=== PATIENT | male | born 1970 | race African-American/Black ===

== ENCOUNTER 2019-10-22 07:53 | Emergency (ER) | payer MEDICAID, OTHER ==
[~2019-10-22] VITALS: Ht 172.7 cm; Wt 90.7 kg
[2019-10-22] MEDS ORDERED: SODIUM CHLORIDE 0.9% 1,000 ML IV ONE (09:00)
[2019-10-22] MEDS ORDERED: KETOROLAC TROMETH 30 MG/ML 1ML VIAL IV ONE (09:00)
[2019-10-22 09:32] LABS: Basophils # (auto) 0.1 uL; Basophils % (auto) 2.1 % (0.0-2.0); Eosinophils # (auto) 0.2 uL; Eosinophils % (auto) 7.1 % (0.0-7.0); Hemoglobin 15.7 g/dL (13.5-17.5); Lymphocytes # (auto) 1.1 uL; Lymphocytes % (auto) 33.1 % (10.0-50.0); Mean Corpuscular Hemoglobin 31.8 pg (28.0-32.0); Mean Corpuscular Hgb Conc. 34.9 g/dL (32.0-36.0); Monocytes # (auto) 0.4 uL; Monocytes % (auto) 11.2 % (0.0-12.0); Neutrophils # (auto) 1.6 uL; Neutrophils % (auto) 46.5 % (37.0-80.0); Nucleated Red Blood Cells % 0.1 %; Platelet Count (auto) 116 10^3/uL (140-450); Red Blood Cells 4.94 10^6/uL (4.5-5.90); Red Cell Distribution Width 13.2 % (11.8-14.3); White Blood Cell 3.4 10^3/uL (4.4-10.8)
[2019-10-22 09:50] LABS: Albumin 3.3 g/dL (3.4-5.0); BUN/Creatinine Ratio 9.4; Calcium 8.7 mg/dL (8.5-10.1); Potassium 3.9 mmol/L (3.5-5.1)
[2019-10-22 09:53] LABS: Bilirubin, Total 0.6 mg/dL (0.2-1.0); Total Protein 6.9 g/dL (6.4-8.2)
[2019-10-22 10:00] VITALS: BP 144/80
== END 2019-10-22 11:12 | disposition home or self-care (01) ==
LOC: ER 07:53
DX: S33.5XXA Sprain of ligaments of lumbar spine, initial encounter (principal); M79.10 Myalgia, unspecified site; E46 Unspecified protein-calorie malnutrition; N18.9 Chronic kidney disease, unspecified; Z68.30 Body mass index [BMI] 30.0-30.9, adult; X58.XXXA Exposure to other specified factors, initial encounter; Y93.89 Activity, other specified; Y92.89 Other specified places as the place of occurrence of the external cause; Y99.8 Other external cause status
CPT/HCPCS: 36415; 74176; 80053; 85025; 96374; 99284; J1885; J7030

== ENCOUNTER 2024-10-18 17:32 | Inpatient (IN) | payer MEDICAID ==
[~2024-10-18] VITALS: Ht 175.3 cm; Wt 87.2 kg
[2024-10-18] MEDS: ASPirin 325 MG TAB PO ONE (17:45)
--- NOTE | 2024-10-18 17:48 | ED.PDOC ---
HPI Comments HPI: Poor Historian. 54-year-old male presents with two day history of left-sided chest pain r adiating to his left upper extremity. Pain has been constant all day today. Denies any associated symptoms. Denies any alleviating or precipitating factors. Denies any use of drugs or tobacco. Patient has popped positive family history of coronary artery disease. Past Medcial History: Hypertension Past Surgical History: Heart catheterization REVIEW OF SYSTEMS: CONSTITUTIONAL: Denies acute: fever, diaphoresis, chills, generalized weakness. HEAD: Denies acute: headache, photophobia Eyes: Denies acute: Double vision, vision loss, eye pain, eye discharge. EARS: Denies acute: tinnitus, hearing loss, ear discharge, ear pain, THROAT: Denies acute: sore throat, swelling, difficulty swallowing , pain with swallowing, change in voice. NECK: Denies acute: neck pain, neck swelling, stiff neck. HEART: Denies acute : palpitations, LUNGS: Denies acute: SOB, wheezing, cough, hemoptysis ABDOMEN: Denies acute: abdominal pain, Nausea, Vomiting, diarrhea, melena , hematemesis, hematochezia SKIN: Denies acute: rash, redness, lesions, itchiness. EXTREMITIES: Denies acute: calf pain, numbness, tingling, weakness, denies pain in extremity. Denies acute: Low back pain. Neuro: Denies acute: focal neurological deficit, motor or sensory focal neurological deficit, tremors, seizure like activity, confusion, dizziness, change in mental status, loss of bowel or bladder function, cauda equina like symptoms. : Denies acute: dysuria, hematuria, flank pain, increase in urinary frequency. PSYCH: Denies acute: hallucination, suicidal ideation, homicidal ideation. PHYSICAL EXAM: General: Mild acute distress, awake and alert. Head: normocephalic, atraumatic. Neck: supple, trachea is midline, no swelling. Throat: Normal phonation. Eyes:, no erythema, no purulent discharge, no proptosis, no icterus. Heart: regular rate, regular rhythm, no significant murmur appreciated. Lungs: no apparent respiratory distress, Able to speak in full sentences. No wheezing, no rhonchi, no crackles. No stridors Clear to auscultation bilaterally. Abdomen: non tender to palpation, non distended, soft, no guarding, no rebound, + bowel sounds. Neuro: Awake, Alert, oriented to name, self, situation, follows commands GCS=15. Speech is normal. Skin: no petechia, no purpura, no cyanosis, non-pale, not jaundice. Lower extremities: --no - Pitting edema no deformity, no focal swelling, no calf TTP. Makes eye contact. moves all four extremities. Face: no apparent facial droop. Ambulating in the ED independently. Chief Complaint: Chest Pain Time Seen by MD: 17:39 Primary Care Provider: ANALIA Reviewed Notes: Nurses Notes, Medications, Allergies Allergies: Coded Allergies: NO KNOWN ALLERGIES (Unverified , 10/22/19) Information Source: Patient Past Medical History PAST MEDICAL HISTORY: CKF Surgical History: Denies all surgeries Family History Family History: Reviewed,noncontributory to illness Social History Smoker: Non-Smoker Alcohol: Occasionally Drugs: Denies Drug Use Lives In: Home Was a procedure done? Was a procedure done?: No CP Differential Dx Differential Diagnosis: N/A Differential Diagnosis: Other (Ddx include but not limitied to gastritis, musculoskeletal pain, radiculopathy, atypical chest pain, dissection, aneurysm, ACS, unstable angina, hiatal hernia, GERD, anxiety, costochondritis, PE, pneumothroax, neoplasm, cardiac ischemia, drug abuse, anemia.) X-Ray, Labs, Meds, VS Vital Signs Date Time Temp Pulse Resp B/P (MAP) Pulse Ox O2 Delivery O2 Flow Rate FiO2 10/18/24 20:45 55 10/18/24 19:59 97.7 72 18 135/74 (94) 96 97.7 10/18/24 19:56 135/74 10/18/24 18:40 65 10/18/24 17:39 94 10/18/24 17:35 98.3 90 18 175/96 (122) 97 Lab Test 10/18/24 19:48 10/18/24 18:45 Range/Units Troponin I High Sensitivity 18 18 </=54 ng/L White Blood Count 3.7 L 4.4-10.8 10^3/uL Red Blood Count 5.00 4.5-5.90 10^6/uL Hemoglobin 16.1 13.5-17.5 g/dL Hematocrit 46.1 41.0-53.0 % Mean Corpuscular Volume 92.1 80.0-100.0 fL Mean Corpuscular Hemoglobin 32.1 H 28.0-32.0 pg Mean Corpuscular Hemoglobin Concent 34.9 32.0-36.0 g/dL Red Cell Distribution Width 13.2 11.8-14.3 % Platelet Count 126 L 140-450 10^3/uL Mean Platelet Volume 10.5 6.9-10.8 fL Neutrophils (%) (Auto) 42.5 37.0-80.0 % Lymphocytes (%) (Auto) 37.9 10.0-50.0 % Monocytes (%) (Auto) 10.4 0.0-12.0 % Eosinophils (%) (Auto) 7.0 0.0-7.0 % Basophils (%) (Auto) 2.2 H 0.0-2.0 % Neutrophils # (Auto) 1.6 1.6-8.6 10 ^3/uL Lymphocytes # (Auto) 1.4 0.4-5.4 10 ^3/uL Monocytes # (Auto) 0.4 0-1.3 10 ^3/uL Eosinophils # (Auto) 0.3 0-0.8 10 ^3/uL Basophils # (Auto) 0.1 0-0.2 10 ^3/uL Nucleated Red Blood Cells 0.3 % D-Dimer, Quantitative 0.45 0.0-0.49 mg/L FEU Sodium Level 137 136-145 mmol/L Potassium Level 3.9 3.5-5.1 mmol/L Chloride Level 103 98-107 mmol/L Carbon Dioxide Level 22 20-31 mmol/L Anion Gap 12 5-15 Blood Urea Nitrogen 16 9-23 mg/dL Creatinine 1.34 H 0.700-1.30 mg/dL Glomerular Filtration Rate Calc 62 >90 mL/min BUN/Creatinine Ratio 11.9 10.0-20.0 Serum Glucose 305 H 74-106 mg/dL Hemoglobin A1c 11.0 H <5.7 % A1C Calcium Level 9.7 8.7-10.4 mg/dL Total Bilirubin 0.5 0.2-1.0 mg/dL Aspartate Amino Transferase (AST) 41 H 13-40 U/L Alanine Aminotransferase (ALT) 52 H 7-40 U/L Alkaline Phosphatase 104 46-116 U/L B-Type Natriuretic Peptide 6.95 0-100 pg/mL Total Protein 6.8 5.7-8.2 g/dL Albumin 4.3 3.2-4.8 g/dL Current Medications Medications (Trade) Dose Ordered Sig/Renny Route Start Time Stop Time Status Last Admin Aspirin 325 mg ONCE ONCE PO 10/18/24 17:45 10/18/24 17:47 DC 10/18/24 17:45 Nitroglycerin (Ntrostat Sublingual) 0.4 mg ONCE ONCE SL 10/18/24 17:45 10/18/24 17:47 DC 10/18/24 19:56 [place] [id number] Ph: [phone] DIAGNOSTIC IMAGING Diagnostic Imaging Report : [id number] Signed PATIENT: NALINI MITCHELL ACCT: [id number] UNIT: [id number] : 1970 LOC: ER ROOM / BED: / AGE / SEX: 54 / M ADM STATUS: REG ER SERVICE 44 ORDERING PHYSICIAN: ZEESHAN DEL CASTILLO DO PROCEDURE(s): CXRP - CHEST PORTABLE REASON: cp ORDER NUMBER(s): [id number], ACCESSION NUMBER(s): [id number] EXAM: XR Chest, 1 View CLINICAL INDICATION: cp TECHNIQUE: Frontal view of the chest. COMPARISON: None FINDINGS: LUNGS AND PLEURAL SPACES: Unremarkable. No consolidation. No pneumothorax. HEART: Unremarkable. No cardiomegaly. MEDIASTINUM: Unremarkable. Normal mediastinal contour. BONES/JOINTS: Unremarkable. No acute fracture. OTHER FINDINGS: . . . IMPRESSION: No acute cardiopulmonary process. HS:Y ATED BY: NEVILLE HAWK MD DICTATED DATE/TIME: 10/18/241833 SIGNED BY: NEVILLE HAWK MD SIGNED DATE/TIME: 10/18/241833 CC: Time of 1ST Reevaluation: 18:52 (The case was discussed with the cardiology on- call team (HPI, physical exam, labs and diagnostic tests that were available at the time of disposition, ED course, treatment plan) on the phone. They reviewed the EKG. Agree with our management. Recommend if the patient has elevated troponin to start the patient on heparin bolus. They will follow in consult Tomorrow. Dr. Lopez) Reevaluation 1ST: Improved Consultation: Cardiology Patient Education/Counseling: Diagnosis, Treatment Family Education/Counseling: Diagnosis, Treatment Comments Patient presented with the above HPI.---cardiac--workup was initiated. patient was found with the above mentioned diagnosis. Patient was given: aspirin and nitroglycerin Patient ED course and VS have been stabilized. Patient has been reassessed in the ED and remained in a stable condition. Pertinent incidental findings were discussed with the patient and/or family. Patient/family voices understanding and is agreeable with plan. Patient has been observed in the ED adequate length of time to insure improvement/stability. Cardiology was consulted patient was admitted to the medicine team for further evaluation and treatment of their presentation. All the reports of any imaging studies that were ordered by myself were reviewed by myself. Departure 1 Departure Time of Disposition: 17:47 Impression: Primary Impression: Chest pain Additional Impression: Abnormal EKG Disposition: ADMITTED INPATIENT Admit to: Tele Condition: Guarded Discharged With: Self Critical Care Note Critical Care Time?: Yes (35 min-critical care time only) Heart Score Heart Score: Heart Score Response (Comments) Value History Moderate Suspicious [address]-Deviation 2 Age 45-64 1 Risk Factors 1 or 2 risk factors 1 Troponin Normal limit 0 Total 5 I personally scribed for ZEESHAN DEL CASTILLO DO ([email or web address]) on 10/18/24 at 21:34. Electronically submitted by Todd Talavera ([email or web address]). ZEESHAN DEL CASTILLO DO Oct 18, 2024 17:48
--- NOTE | 2024-10-18 18:37 | DVH ---
EXAM: XR Chest, 1 View CLINICAL INDICATION: cp TECHNIQUE: Frontal view of the chest. COMPARISON: None FINDINGS: LUNGS AND PLEURAL SPACES: Unremarkable. No consolidation. No pneumothorax. HEART: Unremarkable. No cardiomegaly. MEDIASTINUM: Unremarkable. Normal mediastinal contour. BONES/JOINTS: Unremarkable. No acute fracture. OTHER FINDINGS: . . . IMPRESSION: No acute cardiopulmonary process. HS:Y
[2024-10-18 19:15] LABS: Basophils # (auto) 0.1 10 ^3/uL (0-0.2); Basophils % (auto) 2.2 % (0.0-2.0); Eosinophils # (auto) 0.3 10 ^3/uL (0-0.8); Hematocrit 46.1 % (41.0-53.0); Hemoglobin 16.1 g/dL (13.5-17.5); Lymphocytes # (auto) 1.4 10 ^3/uL (0.4-5.4); Lymphocytes % (auto) 37.9 % (10.0-50.0); Mean Corpuscular Hemoglobin 32.1 pg (28.0-32.0); Mean Corpuscular Hgb Conc. 34.9 g/dL (32.0-36.0); Mean Corpuscular Volume 92.1 fL (80.0-100.0); Monocytes # (auto) 0.4 10 ^3/uL (0-1.3); Monocytes % (auto) 10.4 % (0.0-12.0); Neutrophils # (auto) 1.6 10 ^3/uL (1.6-8.6); Neutrophils % (auto) 42.5 % (37.0-80.0); Nucleated Red Blood Cells % 0.3 %; Platelet Count (auto) 126 10^3/uL (140-450); Red Cell Distribution Width 13.2 % (11.8-14.3); White Blood Cell 3.7 10^3/uL (4.4-10.8)
[2024-10-18 19:41] LABS: Alanine Aminotransferase 52 U/L (7-40); Albumin 4.3 g/dL (3.2-4.8); Alkaline Phosphatase 104 U/L (46-116); Anion Gap 12 (5-15); Aspartate Aminotransferase 41 U/L (13-40); BUN/Creatinine Ratio 11.9 (10.0-20.0); Blood Urea Nitrogen 16 mg/dL (9-23); Calcium 9.7 mg/dL (8.7-10.4); Carbon Dioxide 22 mmol/L (20-31); Chloride 103 mmol/L (98-107); Glucose 305 mg/dL (74-106); Potassium 3.9 mmol/L (3.5-5.1); Sodium 137 mmol/L (136-145)
[2024-10-18 19:42] LABS: Bilirubin, Total 0.5 mg/dL (0.2-1.0); Total Protein 6.8 g/dL (5.7-8.2)
[2024-10-18] MEDS: NITROGLYCERIN 0.4 MG SL TAB SL ONE (19:56)
--- NOTE | 2024-10-18 20:46 | ECG ---
[facility] Test Date: 2024-10-18 Test Time: 20:45:08 [facility] Department: ED Room: 0288T Gender: M Trainman: ONEYDA : 1970 Requested By: ZEESHAN DEL CASTILLO Order Number: [id number] Reading MD: Alexandru Wadsworth Measurements Intervals [place] Rate: 55 P: 83 NC: 104 QRS: 176 QRSD: 109 T: -52 QT: 417 QTc: 399 Interpretive Statements Sinus rhythm Short NC interval Lateral infarct, acute Anteroseptal infarct, old Electronically Signed On 10-20-2024 16:16:37 PST by Alexandru Wadsworth Please click the below link to view image of tracing.
[2024-10-18] MEDS ORDERED: MORPHINE SULFATE INJ 2 MG/ml SYRG IV PRN ×3 (21:00→22:30)
[2024-10-18] MEDS ORDERED: NITROGLYCERIN 0.4 MG SL TAB SL PRN ×2 (21:00→22:30)
[2024-10-18] MEDS ORDERED: ONDANSETRON HCL 4 MG/2 ML VIAL IV PRN (21:00)
[2024-10-18] MEDS ORDERED: DOCUSATE SOD 100 MG CAP PO PRN (21:00)
[2024-10-18] MEDS ORDERED: ACETAMINOPHEN 325 MG TAB PO PRN (21:00)
--- NOTE | 2024-10-18 21:32 | DVHHPRES ---
History of Present Illness Resident Creating Document: SAHIL VILLALBA RESIDENT History of Present Illness Patient is 54 years old male with past medical history of hypertension, asthma came with a complaint of chest pain. Patient reported that he had chest pain that started yesterday, on the left side, intermittent in nature initially, crampy or stabbing in nature, radiating to the left arm, 7/10 in severity, no pain at this moment during H&P, aggravated with exertion, relieved with nitroglycerin. Patient reported that now his pain is persistent, 5/10. Patient also endorsed some short of breath with the pain especially with breathing. On further discussion patient reports that he has been having cough with the yellowish sputum for last 7 days and his primary care physician Dr. Kerr gave him Z-Harvinder. Patient also reported wheezing yesterday. Patient reported that he had chest pain last year for which he went to [facility] and Thought he might have ST-elevation LA and angiogram was done and nothing significant was found. Patient reported that he had colonoscopy and bronchoscopic before and found to have polyp in the colon. Patient denied any fever, palpitation, constipation or diarrhea, dysuria, dysarthria or slurred speech. Initial lab workup revealed leukopenia with WBC 3.7, thrombocytopenia platelet 126, hyperglycemia blood sugar 305, transaminitis AST 41, ALT 52. Other lab workup including troponin I and BNP were within normal limit. EKG reveals ST depression with T inversion in leads 2, 3, AVF, V4, V5, V6. Medication albuterol inhaler, losartan 50 mg p.o. q.d. Past Medical History Hypertension, asthma, colonic polyp Past Surgical History Bilateral knee surgery and left elbow surgery due to trauma from accident. 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 Gastrointestinal- denies any rectal bleeding, nausea or vomiting Musculoskeletal-denies acute joint swelling or tenderness or redness Neurological- denies acute dysarthria, dysphagia, change in vision Psychiatry- denies depression or SI or HI Skin- denies acute rash or purpura Allergies: Coded Allergies: NO KNOWN ALLERGIES (Unverified , 10/22/19) Medications Current Medications Medications Dose Ordered Sig/Renny Route Start Time Stop Time Status Last Admin Dose Admin Ondansetron HCl 4 mg Q4HP PRN IV 10/18/24 21:00 Docusate Sodium 100 mg BIDPRN PRN PO 10/18/24 21:00 Acetaminophen 650 mg Q6HP PRN PO 10/18/24 21:00 Morphine Sulfate 2 mg Q4HPRN PRN IV 10/18/24 21:00 Nitroglycerin 0.4 mg Q5MINP PRN SL 10/18/24 21:00 Morphine Sulfate 2 mg Q30M PRN IV 10/18/24 21:00 Exam Vital Signs Vital Signs Date Time Temp Pulse Resp B/P (MAP) Pulse Ox O2 Delivery O2 Flow Rate FiO2 10/18/24 19:59 97.7 72 18 135/74 (94) 96 97.7 Exam General examination- awake, alert, oriented, conversant HEENT- PEERLA, no acute nasal discharge Cardiovascular- chest wall tenderness+, S1-S2 audible, rate and rhythm regular, no murmur Respiratory- CTAB, no wheeze or rhonchi Gastrointestinal-nontender, bowel sound+. Nondistended Musculoskeletal-no acute joint swelling or tenderness or redness# Lower extremity- trace bilateral leg edema+ Neurological- cranial nerves intact, no acute dysarthria or dysphagia Psychiatry- denies depression or SI or HI Skin- no acute rash or purpura Labs/Xrays Labs Test 10/18/24 19:48 10/18/24 18:45 Range/Units Troponin I High Sensitivity 18 </=54 ng/L White Blood Count 3.7 L 4.4-10.8 10^3/uL Red Blood Count 5.00 4.5-5.90 10^6/uL Hemoglobin 16.1 13.5-17.5 g/dL Hematocrit 46.1 41.0-53.0 % Mean Corpuscular Volume 92.1 80.0-100.0 fL Mean Corpuscular Hemoglobin 32.1 H 28.0-32.0 pg Mean Corpuscular Hemoglobin Concent 34.9 32.0-36.0 g/dL Red Cell Distribution Width 13.2 11.8-14.3 % Platelet Count 126 L 140-450 10^3/uL Mean Platelet Volume 10.5 6.9-10.8 fL Neutrophils (%) (Auto) 42.5 37.0-80.0 % Lymphocytes (%) (Auto) 37.9 10.0-50.0 % Monocytes (%) (Auto) 10.4 0.0-12.0 % Eosinophils (%) (Auto) 7.0 0.0-7.0 % Basophils (%) (Auto) 2.2 H 0.0-2.0 % Neutrophils # (Auto) 1.6 1.6-8.6 10 ^3/uL Lymphocytes # (Auto) 1.4 0.4-5.4 10 ^3/uL Monocytes # (Auto) 0.4 0-1.3 10 ^3/uL Eosinophils # (Auto) 0.3 0-0.8 10 ^3/uL Basophils # (Auto) 0.1 0-0.2 10 ^3/uL Nucleated Red Blood Cells 0.3 % D-Dimer, Quantitative 0.45 0.0-0.49 mg/L FEU Sodium Level 137 136-145 mmol/L Potassium Level 3.9 3.5-5.1 mmol/L Chloride Level 103 98-107 mmol/L Carbon Dioxide Level 22 20-31 mmol/L Anion Gap 12 5-15 Blood Urea Nitrogen 16 9-23 mg/dL Creatinine 1.34 H 0.700-1.30 mg/dL Glomerular Filtration Rate Calc 62 >90 mL/min BUN/Creatinine Ratio 11.9 10.0-20.0 Serum Glucose 305 H 74-106 mg/dL Calcium Level 9.7 8.7-10.4 mg/dL Total Bilirubin 0.5 0.2-1.0 mg/dL Aspartate Amino Transferase (AST) 41 H 13-40 U/L Alanine Aminotransferase (ALT) 52 H 7-40 U/L Alkaline Phosphatase 104 46-116 U/L B-Type Natriuretic Peptide 6.95 0-100 pg/mL Total Protein 6.8 5.7-8.2 g/dL Albumin 4.3 3.2-4.8 g/dL Assessment/Plan Assessment/Plan Acute chest pain likely hypertensive urgency, musculoskeletal or pericarditis - EKG reveals ST depression with T inversion in leads 2, 3, AVF, V4, V5, V6. -troponin I and BNP within normal limit -patient had pain last year and went to [facility] and CAD was nonsignificant as per patient -continue aspirin 81 mg p.o. daily -continue atorvastatin 40 mg q.h.s. -pending echo 2D -ordered cardiology consult # hypertensive urgency -on arrival BP 175/96 -patient had chest pain -continue hydralazine 10 mg IV q.6h p.r.n. -continue aspirin 81 mg q.d. -troponin I and BNP negative # diabetes mellitus type2, newly diagnosed -HGB A1c 11.0 -initial serum glucose 305 -continue insulin sliding scale as prescribed # bronchial asthma -continue nebulization p.r.n. as prescribed # colonic polyp -as per patient he had colonoscopy before and was found to have polyp in the colon # hypertriglyceridemia -continue atorvastatin 40 mg q.h.s. # transaminitis -AST 41, ALT 52 -monitor LFT # thrombocytopenia -platelet 126 Goals of care/advance care planning; FULL CODE; discussed with the patient >15 minutes PUD prophylaxis: Famotidine DVT prophylaxis: Patient ambulating PCP Dr. Yao Cardiology Dr. Melton Plan discussed with Dr. Frankel, nursing staff, patient Total time spent on patient evaluation, chart review, assessment and plan, discussion discussion >30 minutes Plan discussed with: Patient Plan discussed with: Patient, Other (RN) My Orders Orders - SAHIL VILLALBA RESIDENT Procedure Category Date Status Time Admit ADMIT 10/18/24 Transmitted 20:51 Code Status CODE 10/18/24 Transmitted 20:51 Ondansetron Hcl PHA 10/18/24 In Process (Zofran) 21:00 Docusate Sodium PHA 10/18/24 In Process Capsule (Colace 21:00 Complete Blood Count LAB 10/19/24 Verified 04:00 Comprehensive LAB 10/19/24 Verified Metabolic Panel 04:00 Cardiac DIET 10/19/24 Transmitted Diet-2gna,Lofat,Lochol Breakfast Echo 2d Mode Cardiac US 10/18/24 Logged DOP 20:51 Acetaminophen Tablet PHA 10/18/24 In Process (Tylenol Tablet) 21:00 Morphine Sulfate PHA 10/18/24 In Process Injection 21:00 Nitroglycerin PHA 10/18/24 In Process Sublingual (Ntrostat 21:00 Morphine Sulfate PHA 10/18/24 In Process Injection 21:00 Oxygen By Nasal RT 10/18/24 Transmitted Cannula 20:51 Stat Ekg For Chest DAVID 10/18/24 In Process Pain 20:51 Notify Md Of Changes DAVID 10/18/24 In Process From Base 20:51 Mass Spectrometry Manager For [facility] 10/18/24 In Process 24 Hours 20:51 Emergency Dysrhythmia DAVID 10/18/24 In Process Protocol 20:51 Rhythm Strips Once [facility] 10/18/24 In Process Every Shift 20:51 Thyroid Stimulating LAB 10/18/24 Logged Hormone 20:56 Magnesium LAB 10/18/24 Logged 20:56 Date of Service: Oct 18, 2024 Billing Provider: LOGAN FRANKEL Common Visit Codes: [id number] INP/OBS CARE (HIGH) SAHIL VILLALBA RESIDENT Oct 18, 2024 21:32 ARMIN FRANKEL MD Oct 19, 2024 21:33
[2024-10-18] MEDS ORDERED: DEXTROSE (50%) 50ML SYRG IV PRN (23:15)
[2024-10-18 23:51] LABS: INR 1.01 (0.9-1.15); Prothrombin Time 10.7 sec (9.3-11.8)
[2024-10-19 05:15] LABS: Basophils # (auto) 0.1 10 ^3/uL (0-0.2); Basophils % (auto) 1.9 % (0.0-2.0); Eosinophils # (auto) 0.3 10 ^3/uL (0-0.8); Eosinophils % (auto) 8.1 % (0.0-7.0); Hematocrit 44.2 % (41.0-53.0); Hemoglobin 15.3 g/dL (13.5-17.5); Lymphocytes # (auto) 1.5 10 ^3/uL (0.4-5.4); Mean Corpuscular Hemoglobin 31.9 pg (28.0-32.0); Mean Corpuscular Hgb Conc. 34.6 g/dL (32.0-36.0); Mean Corpuscular Volume 92.3 fL (80.0-100.0); Monocytes # (auto) 0.4 10 ^3/uL (0-1.3); Monocytes % (auto) 12.5 % (0.0-12.0); Neutrophils # (auto) 1.1 10 ^3/uL (1.6-8.6); Neutrophils % (auto) 33.5 % (37.0-80.0); Nucleated Red Blood Cells % 0.5 %; Platelet Count (auto) 103 10^3/uL (140-450); Red Blood Cells 4.79 10^6/uL (4.5-5.90); Red Cell Distribution Width 13.3 % (11.8-14.3); White Blood Cell 3.3 10^3/uL (4.4-10.8)
[2024-10-19 05:37] LABS: Alanine Aminotransferase 45 U/L (7-40); Albumin 3.5 g/dL (3.2-4.8); Alkaline Phosphatase 90 U/L (46-116); Anion Gap 9 (5-15); Aspartate Aminotransferase 31 U/L (13-40); BUN/Creatinine Ratio 10.2 (10.0-20.0); Bilirubin, Total 0.5 mg/dL (0.2-1.0); Blood Urea Nitrogen 13 mg/dL (9-23); Carbon Dioxide 24 mmol/L (20-31); Chloride 106 mmol/L (98-107); Cholesterol 162 mg/dL (< 200); Glucose 243 mg/dL (74-106); HDL Cholesterol 27 mg/dL (40-59); Sodium 139 mmol/L (136-145); Triglycerides 496 mg/dL (< 150)
[2024-10-19] MEDS: ACCU-CHEK COMFORT CURVE STRIP VI SCH (06:42)
[2024-10-19] MEDS: InsuLIN REG 1unit/0.01ml Soln (100units/ml) SC SCH (06:43)
[2024-10-19 08:00] LABS: Magnesium 2.2 mg/dL (1.6-2.6)
[2024-10-19 08:02] LABS: Phosphorus 3.7 mg/dL (2.4-5.1)
[2024-10-19 08:06] VITALS: PULSE 69; RESP 15; O2SAT 98
[2024-10-19] MEDS: ADENOSINE 67 MG in GIVE UN-DILUTED 0 ML IV ONE (09:43)
[2024-10-19] MEDS: ASPirin 81 mg TAB PO SCH (10:49)
[2024-10-19] MEDS: ENOXAPARIN SOD 100 MG/1 ML SYRINGE SC SCH (10:49)
--- NOTE | 2024-10-19 10:59 | ECG ---
[facility] Test Date: 2024-10-18 Test Time: 18:40:19 [facility] Department: ER Room: 0288T Gender: M Floor Installer: GP : 1970 Requested By: ZEESHAN DEL CASTILLO Order Number: [id number] Reading MD: Alexandru Wadsworth Measurements Intervals [place] Rate: 65 P: 78 [place]: 115 QRS: 158 QRSD: 107 T: -51 QT: 382 QTc: 398 Interpretive Statements Sinus rhythm Borderline short [place] interval Lateral infarct, acute (LAD) Anteroseptal infarct, old Baseline wander in lead(s) V3 Electronically Signed On 10-20-2024 16:16:23 PST by Alexandru Wadsworth Please click the below link to view image of tracing.
--- NOTE | 2024-10-19 13:00 | DVHPNRES ---
Progress Note Objective vital signs Vital Sign Date Time Temp Pulse Resp B/P (MAP) Pulse Ox O2 Delivery O2 Flow Rate FiO2 10/19/24 08:06 69 15 98 Room Air* 0 21 10/19/24 08:04 97.1 151/81 (104) 97.1 medications Current Medications Medications Dose Ordered Sig/Renny Route Start Time Stop Time Status Last Admin Dose Admin Ondansetron HCl 4 mg Q4HP PRN IV 10/18/24 21:00 Docusate Sodium 100 mg BIDPRN PRN PO 10/18/24 21:00 Acetaminophen 650 mg Q6HP PRN PO 10/18/24 21:00 Morphine Sulfate 2 mg Q30M PRN IV 10/18/24 21:00 Aspirin 81 mg DAILY PO 10/19/24 10:00 10/19/24 10:49 81 MG Atorvastatin Calcium 40 mg HS PO 10/19/24 22:00 Nitroglycerin 0.4 mg Q5MINP PRN SL 10/18/24 22:30 Morphine Sulfate 2 mg Q6HPRN PRN IV 10/18/24 22:30 Diagnostic Test (Pha) 1 strip ACHS 10/19/24 07:00 10/19/24 11:35 1 STRIP Insulin Human Regular ACHS SC 10/19/24 07:00 10/19/24 11:59 10 UNITS Dextrose 50 ml UD PRN IV 10/18/24 23:15 Enoxaparin Sodium 80 mg Q12HR SC 10/19/24 10:00 10/19/24 10:49 80 MG laboratory and microbiology Laboratory Tests 10/19/24 04:41 Test 10/19/24 04:41 Range/Units Serum Glucose 243 H 74-106 mg/dL DENVER COTTER RESIDENT Oct 19, 2024 13:00
[2024-10-19 15:03] LABS: Urine Bacteria None Seen /hpf (None Seen)
[2024-10-19] MEDS: INSULIN LANTUS (GLARGINE) 1 /0.01ml (100units/ml) SC ONE (15:19)
[2024-10-19 15:21] LABS: Urine Blood Negative /uL (Negative); Urine Clarity Clear (Clear); Urine Color Light-Yellow (Yellow); Urine Protein, UAD Negative (Negative); Urine Urobilinogen Normal (Negative); Urine WBC 1 /hpf (0 - 3); Urine pH 6.5 (5.0-9.0)
[2024-10-19 15:39] LABS: Amphetamine Screen, Urine Neg (NEGATIVE); Barbiturate Scree,Urine Neg (NEGATIVE); Benzodiazephine Screen, Urine Neg (NEGATIVE); Cannabinoid Screen, Urine Neg (NEGATIVE); Cocaine Screen, Urine Neg (NEGATIVE); Opiate Scree,Urine Neg (NEGATIVE); Phencyclidine Screen, Urine Neg (NEGATIVE)
[2024-10-19 16:10] VITALS: BP 163/88; PULSE 60; RESP 17; TEMP 98; O2SAT 99
--- NOTE | 2024-10-19 16:42 | DVHINCON2 ---
Date of service: Oct 19, 2024 History of Present Illness Patient is 54 years old male with past medical history of hypertension, asthma came with a complaint of chest pain. Patient reported that he had chest pain that started yesterday, on the left side, intermittent in nature initially, crampy or stabbing in nature, radiating to the left arm, 7/10 in severity, no pain at this moment during H&P, aggravated with exertion, relieved with nitroglycerin. Patient reported that now his pain is persistent, 5/10. Patient also endorsed some short of breath with the pain especially with breathing. On further discussion patient reports that he has been having cough with the yellowish sputum for last 7 days and his primary care physician Dr. Kerr gave him Z-Harvinder. Patient also reported wheezing yesterday. Patient reported that he had chest pain last year for which he went to [facility] and Thought he might have ST-elevation NV and angiogram was done and nothing significant was found. Patient reported that he had colonoscopy and bronchoscopic before and found to have polyp in the colon. Patient denied any fever, palpitation, constipation or diarrhea, dysuria, dysarthria or slurred speech. Initial lab workup revealed leukopenia with WBC 3.7, thrombocytopenia platelet 126, hyperglycemia blood sugar 305, transaminitis AST 41, ALT 52. Ot her lab workup including troponin I and BNP were within normal limit. EKG reveals ST depression with T inversion in leads 2, 3, AVF, V4, V5, V6. Medication albuterol inhaler, losartan 50 mg p.o. q.d. Past Medical History Hypertension, asthma, colonic polyp Past Surgical History Bilateral knee surgery and left elbow surgery due to trauma from accident. 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, nonsmoker, no drug abuser, lives with at home Past Medical History reviewed Allergies: Coded Allergies: NO KNOWN ALLERGIES (Unverified , 10/22/19) Current Medications Current Medications Medications (Trade) Dose Ordered Sig/Renny Route PRN Reason Start Time Stop Time Status Last Admin Ondansetron HCl (Zofran) 4 mg Q4HP PRN IV NAUSEA / VOMITING 10/18/24 21:00 Docusate Sodium (Colace Capsule) 100 mg BIDPRN PRN PO FOR CONSTIPATION 10/18/24 21:00 Acetaminophen (Tylenol Tablet) 650 mg Q6HP PRN PO PAIN SCALE 1-3 OR TEMP>100.4 10/18/24 21:00 Morphine Sulfate 2 mg Q4HPRN PRN IV SEVERE PAIN (7-10 PAIN SCALE) 10/18/24 21:00 10/18/24 22:32 DC Nitroglycerin (Ntrostat Sublingual) 0.4 mg Q5MINP PRN SL FOR CHEST PAIN 10/18/24 21:00 10/18/24 22:33 DC Morphine Sulfate 2 mg Q30M PRN IV FOR CHEST PAIN 10/18/24 21:00 Aspirin 81 mg DAILY PO 10/19/24 10:00 10/19/24 10:49 Atorvastatin Calcium (Lipitor) 40 mg HS PO 10/19/24 22:00 Nitroglycerin (Ntrostat Sublingual) 0.4 mg Q5MINP PRN SL FOR CHEST PAIN 10/18/24 22:30 Morphine Sulfate 2 mg Q6HPRN PRN IV SEVERE PAIN (7-10 PAIN SCALE) 10/18/24 22:30 Diagnostic Test (Pha) (Accu-Chek Comfort Curve T) 1 strip ACHS 10/19/24 07:00 10/19/24 11:35 Insulin Human Regular (InsuLIN R) ACHS SC 10/19/24 07:00 10/19/24 11:59 Dextrose 50 ml UD PRN IV Blood Sugar LESS THAN 60 10/18/24 23:15 Enoxaparin Sodium (Lovenox) 80 mg Q12HR SC 10/19/24 10:00 10/19/24 10:49 Insulin Glargine (Lantus) 20 units QAM SC 10/20/24 07:00 Review of Systems 10 pt ros otherwise negative Vital Signs Vital Signs Date Time Temp Pulse Resp B/P (MAP) Pulse Ox O2 Delivery O2 Flow Rate FiO2 10/19/24 14:00 59 15 150/88 (108) 91 10/19/24 08:06 Room Air* 0 21 10/19/24 08:04 97.1 97.1 Physical Exam nad s1 s2 rrr ctab soft nt/nd no edema Labs/Diagnostic Data Labs Test 10/19/24 15:09 10/19/24 14:56 10/19/24 04:41 10/18/24 23:22 Range/Units POC Glucose 173 H 70-106 mg/dl Urine Color Light-yellow Yellow Urine Clarity Clear Clear Urine pH 6.5 5.0-9.0 Urine Specific [place] 1.020 1.001-1.035 Urine Protein Negative Negative Urine Ketones Negative Negative Urine Blood Negative Negative /uL Urine Nitrite Negative Negative Urine Bilirubin Negative Negative Urine Urobilinogen Normal Negative mg/dL Urine Leukocyte Esterase Negative Negative /uL Urine RBC <1 0 - 3 /hpf Urine WBC 1 0 - 3 /hpf Urine Squamous Epithelial Cells None seen <5 /hpf Urine Bacteria None seen None Seen /hpf Urine Glucose 4+ H Normal mg/dL Urine Opiates Screen Neg NEGATIVE Urine Fentanyl Screen Neg NEGATIVE Urine Barbiturates Screen Neg NEGATIVE Urine Phencyclidine Screen Neg NEGATIVE Urine Amphetamines Screen Neg NEGATIVE Urine Benzodiazepines Screen Neg NEGATIVE Urine Cocaine Screen Neg NEGATIVE Urine Cannabinoids Screen Neg NEGATIVE White Blood Count 3.3 L 4.4-10.8 10^3/uL Red Blood Count 4.79 4.5-5.90 10^6/uL Hemoglobin 15.3 13.5-17.5 g/dL Hematocrit 44.2 41.0-53.0 % Mean Corpuscular Volume 92.3 80.0-100.0 fL Mean Corpuscular Hemoglobin 31.9 28.0-32.0 pg Mean Corpuscular Hemoglobin Concent 34.6 32.0-36.0 g/dL Red Cell Distribution Width 13.3 11.8-14.3 % Platelet Count 103 L 140-450 10^3/uL Mean Platelet Volume 10.2 6.9-10.8 fL Neutrophils (%) (Auto) 33.5 L 37.0-80.0 % Lymphocytes (%) (Auto) 44.0 10.0-50.0 % Monocytes (%) (Auto) 12.5 H 0.0-12.0 % Eosinophils (%) (Auto) 8.1 H 0.0-7.0 % Basophils (%) (Auto) 1.9 0.0-2.0 % Neutrophils # (Auto) 1.1 L 1.6-8.6 10 ^3/uL Lymphocytes # (Auto) 1.5 0.4-5.4 10 ^3/uL Monocytes # (Auto) 0.4 0-1.3 10 ^3/uL Eosinophils # (Auto) 0.3 0-0.8 10 ^3/uL Basophils # (Auto) 0.1 0-0.2 10 ^3/uL Nucleated Red Blood Cells 0.5 % Sodium Level 139 136-145 mmol/L Potassium Level 4.0 3.5-5.1 mmol/L Chloride Level 106 98-107 mmol/L Carbon Dioxide Level 24 20-31 mmol/L Anion Gap 9 5-15 Blood Urea Nitrogen 13 9-23 mg/dL Creatinine 1.27 0.700-1.30 mg/dL Glomerular Filtration Rate Calc 66 >90 mL/min BUN/Creatinine Ratio 10.2 10.0-20.0 Serum Glucose 243 H 74-106 mg/dL Calcium Level 9.0 8.7-10.4 mg/dL Phosphorus Level 3.7 2.4-5.1 mg/dL Magnesium Level 2.2 1.6-2.6 mg/dL Total Bilirubin 0.5 0.2-1.0 mg/dL Aspartate Amino Transferase (AST) 31 13-40 U/L Alanine Aminotransferase (ALT) 45 H 7-40 U/L Alkaline Phosphatase 90 46-116 U/L Total Protein 6.0 5.7-8.2 g/dL Albumin 3.5 3.2-4.8 g/dL Triglycerides Level 496 H < 150 mg/dL Cholesterol Level 162 < 200 mg/dL LDL Cholesterol < 100 mg/dL HDL Cholesterol 27 L 40-59 mg/dL Prothrombin Time 10.7 9.3-11.8 sec Prothrombin Time INR 1.01 0.9-1.15 Plasma/Serum Blood Alcohol < 3.0 <10 mg/dL Test 10/18/24 21:42 10/18/24 18:45 Range/Units Troponin I High Sensitivity 19 </=54 ng/L Thyroid Stimulating Hormone (TSH) 3.08 0.55-4.78 uIU/mL D-Dimer, Quantitative 0.45 0.0-0.49 mg/L FEU Hemoglobin A1c 11.0 H <5.7 % A1C B-Type Natriuretic Peptide 6.95 0-100 pg/mL Assessment r/o acs htn hl Plan/Recommendation acs ruled out pt had 2 negative LHC once for a code stemi at [facility] 2 years ago, clearly pt has hx of bizarre ecg with repol abnormalities spect done showing no ischemia pt also states he had negative stress mpi he has his ow n cards in [place] cv cleared for dc home outpt fu with his cards also pt should keep copy of ecg in phone Plan discussed with: Patient AARON CULLEN MD Oct 19, 2024 16:42
[2024-10-19] MEDS ORDERED: LOSA-535 PO (16:54)
[2024-10-19] MEDS ORDERED: FLUT250M2 INH (16:54)
[2024-10-19] MEDS ORDERED: ALBUAER3 IN (16:54)
--- NOTE | 2024-10-19 16:57 | DVHSR ---
APPROVED REPORT EXAM: Two-dimensional and M-mode echocardiogram with Doppler and color Doppler. Blood Pressure: 152/74 mmHg INDICATION Chest Pain rule out hypokenesia or valve abnormalities RISK FACTORS Height: 5'10, Weight: 175 DIMENSIONS LVDd4.0 (3.8-5.7cm)LA (2D)3.4 (1.9-4.0cm)Aortic Root3.1 (2.0-3.7cm) LVDs2.9 (2.5-4.0cm)LA (MM) (1.9-4.0cm)Aortic Cusp Exc1.2 (1.5-2.0cm) EF (%) 55.0 (55-70%)Rt. Atrium3.7 (1.9-4.0cm)Asc. Aorta3.3 cm IVSd0.9 (0.7-1.1cm)RV (D) (1.8-2.4cm) PWd1.2 (0.7-1.1cm) Mitral Valve MitralMitral Stenosis E wave1.12m/sMV Mean GR.mmHg A wave0.94m/sMV Peak GR.mmHg E/A ratio1.22D MVAcm2 DECEL [id number] 1/2 Timems Aortic Valve Aortic ValveAortic Stenosis V11.24m/Adeel Mean GR.5mmHg V21.60m/Adeel Peak GR.10mmHg LVOT Diameter1.7 (1.8-2.4cm)Doppler AVA1.76cm2 Pulmonic Valve V21.37m/s Tricuspid Valve TR Velocity2.30m/s [id number] Conclusion lvef 60% by visual estimate mmild to moderate LVH grade 2 diastolic dysfunction normal rv function
[2024-10-19 17:07] VITALS: BP 163/88; PULSE 60; RESP 17; TEMP 98; O2SAT 99
--- NOTE | 2024-10-19 17:07 | DVHSR ---
APPROVED REPORT Exam: Nuclear Stress Test BMI: 0 Stress Test Details HR Max Heart Rate (APMHR): 164.247719 bpm Target HR (85% APMHR): 139.781052 bpm BP ECG Stress ECG Conclusion lvef is 48% not correlative to echo which is higher normal perfusion scan, no ischemia noted bizarre baseline ecg with deep TWI inferiorly and st depression inferolaterally with septal infarct, this pt has hx of abnormal ecg NM EXAM: Myocardial Perfusion REST/STRESS Imaging Protocol: Rest Tc-99m/Stress Tc-99m 1 day Resting Data Rest SPECT myocardial perfusion imaging was performed in supine position 60 minutes following the int ravenous injection of 13.7 mCi of Tc-99m Sestamibi. Time of rest injection: 0830 Time of rest imagin Administration Route: IV Administration Site: Left Arm Pharmacologic Stress Pharmacologic stress test was performed by injecting Adenosine mg IV push followed by the intravenou s injection of 34 mCi of Tc-99m Sestamibi. Time of stress injection: 0950 Time of stress imagin Administration Route: IV Administration Site: Left Arm Gated Stress SPECT was performed 60 minutes after stress injection. The images were gated to evaluate regional wall motion and calculate left ventricular ejection fracti on. Stress only was performed in the Supine position. Nuclear Conclusion ECG Findings: equivocal Nuclear Findings: negative for ischemia lvef is 48% not correlative to echo which is higher normal perfusion scan, no ischemia noted bizarre baseline ecg with deep TWI inferiorly and st depression inferolaterally with septal infarct, this pt has hx of abnormal ecg
--- NOTE | 2024-10-19 18:28 | DVHDSRES ---
Discharge Summary Date of Admission Resident Creating Document: SAHIL VILLALBA RESIDENT Oct 18, 2024 at 20:51 Date of Discharge: Oct 19, 2024 Admitting Diagnosis chest pain Labs/Diagnostic Data: Laboratory Results Test 10/19/24 17:16 10/19/24 14:56 10/19/24 04:41 10/18/24 23:22 POC Glucose 130 mg/dl (70-106) Urine Color Light-yellow (Yellow) Urine Clarity Clear (Clear) Urine pH 6.5 (5.0-9.0) Urine Specific [place] 1.020 (1.001-1.035) Urine Protein Negative (Negative) Urine Ketones Negative (Negative) Urine Blood Negative /uL (Negative) Urine Nitrite Negative (Negative) Urine Bilirubin Negative (Negative) Urine Urobilinogen Normal mg/dL (Negative) Urine Leukocyte Esterase Negative /uL (Negative) Urine RBC <1 /hpf (0 - 3) Urine WBC 1 /hpf (0 - 3) Urine Squamous Epithelial Cells None seen /hpf (<5) Urine Bacteria None seen /hpf (None Seen) Urine Glucose 4+ mg/dL (Normal) Urine Opiates Screen Neg (NEGATIVE) Urine Fentanyl Screen Neg (NEGATIVE) Urine Barbiturates Screen Neg (NEGATIVE) Urine Phencyclidine Screen Neg (NEGATIVE) Urine Amphetamines Screen Neg (NEGATIVE) Urine Benzodiazepines Screen Neg (NEGATIVE) Urine Cocaine Screen Neg (NEGATIVE) Urine Cannabinoids Screen Neg (NEGATIVE) White Blood Count 3.3 10^3/uL (4.4-10.8) Red Blood Count 4.79 10^6/uL (4.5-5.90) Hemoglobin 15.3 g/dL (13.5-17.5) Hematocrit 44.2 % (41.0-53.0) Mean Corpuscular Volume 92.3 fL (80.0-100.0) Mean Corpuscular Hemoglobin 31.9 pg (28.0-32.0) Mean Corpuscular Hemoglobin Concent 34.6 g/dL (32.0-36.0) Red Cell Distribution Width 13.3 % (11.8-14.3) Platelet Count 103 10^3/uL (140-450) Mean Platelet Volume 10.2 fL (6.9-10.8) Neutrophils (%) (Auto) 33.5 % (37.0-80.0) Lymphocytes (%) (Auto) 44.0 % (10.0-50.0) Monocytes (%) (Auto) 12.5 % (0.0-12.0) Eosinophils (%) (Auto) 8.1 % (0.0-7.0) Basophils (%) (Auto) 1.9 % (0.0-2.0) Neutrophils # (Auto) 1.1 10 ^3/uL (1.6-8.6) Lymphocytes # (Auto) 1.5 10 ^3/uL (0.4-5.4) Monocytes # (Auto) 0.4 10 ^3/uL (0-1.3) Eosinophils # (Auto) 0.3 10 ^3/uL (0-0.8) Basophils # (Auto) 0.1 10 ^3/uL (0-0.2) Nucleated Red Blood Cells 0.5 % Sodium Level 139 mmol/L (136-145) Potassium Level 4.0 mmol/L (3.5-5.1) Chloride Level 106 mmol/L (98-107) Carbon Dioxide Level 24 mmol/L (20-31) Anion Gap 9 (5-15) Blood Urea Nitrogen 13 mg/dL (9-23) Creatinine 1.27 mg/dL (0.700-1.30) Glomerular Filtration Rate Calc 66 mL/min (>90) BUN/Creatinine Ratio 10.2 (10.0-20.0) Serum Glucose 243 mg/dL (74-106) Calcium Level 9.0 mg/dL (8.7-10.4) Phosphorus Level 3.7 mg/dL (2.4-5.1) Magnesium Level 2.2 mg/dL (1.6-2.6) Total Bilirubin 0.5 mg/dL (0.2-1.0) Aspartate Amino Transferase (AST) 31 U/L (13-40) Alanine Aminotransferase (ALT) 45 U/L (7-40) Alkaline Phosphatase 90 U/L (46-116) Total Protein 6.0 g/dL (5.7-8.2) Albumin 3.5 g/dL (3.2-4.8) Triglycerides Level 496 mg/dL (< 150) Cholesterol Level 162 mg/dL (< 200) LDL Cholesterol mg/dL (< 100) HDL Cholesterol 27 mg/dL (40-59) Prothrombin Time 10.7 sec (9.3-11.8) Prothrombin Time INR 1.01 (0.9-1.15) Plasma/Serum Blood Alcohol < 3.0 mg/dL (<10) Test 10/18/24 21:42 10/18/24 18:45 Troponin I High Sensitivity 19 ng/L (</=54) Thyroid Stimulating Hormone (TSH) 3.08 uIU/mL (0.55-4.78) D-Dimer, Quantitative 0.45 mg/L FEU (0.0-0.49) Hemoglobin A1c 11.0 % A1C (<5.7) B-Type Natriuretic Peptide 6.95 pg/mL (0-100) Other Laboratory Tests 10/19/24 04:41 Brief Hx & Hospital Course: A 54-year-old male with a history of hypertension, asthma, type 2 diabetes, and prior chest pain evaluation presented with intermittent left-sided chest pain, rated 9/10, aggravated by exertion. EKG revealed ST depression with T-wave inversions in leads 2, 3, AVF, V4-V6. Cardiac markers were negative, ruling out acute coronary syndrome. In patient stress test and prior 2 negatives C , confirmed no significant ischemia. Further workup addressed comorbid conditions, including newly diagnosed diabetes which will need treatment with insulin as outpatient and hypertriglyceridemia with atorvastatin, also HTN managment was optimized. The patient was counseled on dietary and lifestyle modifications. He was discharged in stable condition with outpatient cardiology follow-up, emphasizing maintaining a copy of his ECG due to prior nonspecific repolarization abnormalities. Patient was seen today at the bedside. Gastrointestinal- denies any rectal bleeding, nausea or vomiting Musculoskeletal-denies acute joint swelling or tenderness or redness Neurological- denies acute dysarthria, dysphagia, change in vision Psychiatry- denies depression or SI or HI Skin- denies acute rash or purpura Case discussed with Dr Henderson Consults/Reason for consult cardiology due to chest pain Operations or Procedures Exam: Nuclear Stress Test BMI: 0 Stress Test Details HR Max Heart Rate (APMHR): 164.896844 bpm Target HR (85% APMHR): 139.737165 bpm BP ECG Stress ECG Conclusion lvef is 48% not correlative to echo which is higher normal perfusion scan, no ischemia noted bizarre baseline ecg with deep TWI inferiorly and st depression inferolaterally with septal infarct, this pt has hx of abnormal ecg NM EXAM: Myocardial Perfusion REST/STRESS Imaging Protocol: Rest Tc-99m/Stress Tc-99m 1 day Resting Data Rest SPECT myocardial perfusion imaging was performed in supine position 60 minutes following the intravenous injection of 13.7 mCi of Tc-99m Sestamibi. Time of rest injection: 0830 Time of rest imagin Administration Route: IV Administration Site: Left Arm Pharmacologic Stress Pharmacologic stress test was performed by injecting Adenosine mg IV push followed by the intravenous injection of 34 mCi of Tc-99m Sestamibi. Time of stress injection: 0950 Time of stress imagin Administration Route: IV Administration Site: Left Arm Gated Stress SPECT was performed 60 minutes after stress injection. The images were gated to evaluate regional wall motion and calculate left ventricular ejection fraction. Stress only was performed in the Supine position. Nuclear Conclusion ECG Findings: equivocal Nuclear Findings: negative for ischemia lvef is 48% not correlative to echo which is higher normal perfusion scan, no ischemia noted bizarre baseline ecg with deep TWI inferiorly and st depression inferolaterally with septal infarct, this pt has hx of abnormal ecg Condition at Discharge: Stable Final Diagnosis/Problems List #Acute chest pain likely hypertensive urgency, musculoskeletal possible GERD ACS ruled out # hypertensive urgency resolved # diabetes mellitus type2, newly diagnosed # bronchial asthma # colonic polyp # hypertriglyceridemia # transaminitis # thrombocytopenia Discharge Disposition: Home Discharge Instruct/Medications Diet: Consistent carbohydrate, Cardiac 2g Na,low cholest Activity: Light activity Follow Up/Referral: f/u with pcp Medications: resume home meds Discharge Statement: "Patient was advised to return to the ER or call 911 if any headaches, dizziness, shortness of breath, chest pain, abdominal pain, bleeding, fevers, or worsening of medical condition. Patient was counseled about treatment plan, medications, possible side effects, patientverbalized understanding. All questions were answered to the best of my ability. This discharge took greater then 30 minutes in planning, reviewing documentation, counseling the patient, and discussing with other team members." ASSESSMENT ASSESSMENT Assessment chest pain possible musculoskelatal possible GERD ACS ruled out DENVER COTTER RESIDENT Oct 19, 2024 18:27
[2024-10-19] MEDS ORDERED: BLOO-169 XX (19:30)
[2024-10-19] MEDS ORDERED: [UNRECOGNIZED DRUG - CODE] XX (19:30)
[2024-10-19] MEDS ORDERED: LANC-347 XX (19:30)
[2024-10-19] MEDS ORDERED: INSLANTI SC (19:30)
[2024-10-19] MEDS ORDERED: AML5T PO (19:30)
[2024-10-19] MEDS ORDERED: PANT40TA2 PO (19:30)
[2024-10-19] MEDS ORDERED: ATOR20TA50 PO (19:33)
[2024-10-19 20:00] VITALS: PULSE 57; RESP 18; O2SAT 97
[2024-10-19 20:46] VITALS: BP 135/74; TEMP 36.7
[2024-10-19 22:00] VITALS: BP 149/80; PULSE 69; RESP 17; TEMP 97; O2SAT 100
[2024-10-19] MEDS ORDERED: ATORVASTATIN 20 MG TAB PO SCH (22:00)
[2024-10-20 01:00] VITALS: BP 98/61; PULSE 80; RESP 18; TEMP 98.5; O2SAT 94
[2024-10-20 05:00] VITALS: BP 96/56; PULSE 61; RESP 18; TEMP 98.6; O2SAT 96
[2024-10-20] MEDS ORDERED: INSULIN LANTUS (GLARGINE) 1 /0.01ml (100units/ml) SC SCH (07:00)
--- NOTE | 2024-10-20 10:34 | ECG ---
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
== END 2024-10-19 21:54 | disposition home or self-care (01) | DRG 243 ==
LOC: ER 17:32 → TELE 20:51 → TELE-WESTW 10-19 16:11
PROVIDERS: ADMIT Internal Medicine Geriatric Medicine; ATTEND Internal Medicine Geriatric Medicine
DX: K21.9 Gastro-esophageal reflux disease without esophagitis (principal); D69.6 Thrombocytopenia, unspecified; E11.9 Type 2 diabetes mellitus without complications; I16.0 Hypertensive urgency; J45.909 Unspecified asthma, uncomplicated; K63.5 Polyp of colon; E78.1 Pure hyperglyceridemia; R74.01 Elevation of levels of liver transaminase levels; Z82.49 Family history of ischemic heart disease and other diseases of the circulatory system; Z79.82 Long term (current) use of aspirin
CPT/HCPCS: 36415; 71045; 78452; 80053; 80061; 80307; 80320; 81001; 82306; 82607; 82962; 83036; 83735; 83880; 84100; 84443; 84484; 85025; 85379; 85610; 93005; 93017; 93306; 99291; G0378; J0153; J1815